=== PATIENT | female | born 1980 | race Two or more races ===

== ENCOUNTER 2021-09-25 16:09 | Emergency (ER) | payer MEDICAID ==
[~2021-09-25] VITALS: Ht 157.5 cm; Wt 80.7 kg
[2021-09-25] MEDS ORDERED: IV NORMAL SALINE 1000 ML BAG IV ONE (16:45)
[2021-09-25] MEDS ORDERED: METF-442 PO (17:00)
[2021-09-25 17:04] LABS: HEMATOCRIT 40.9 % (31.2-41.9); MEAN CORPUSCULAR HEMOGLOBIN 28.8 uug (24.7-32.8); MEAN CORPUSCULAR VOLUME 85.7 fL (75.5-95.3); PLATELET COUNT (AUTO) 272 K/uL (179-408)
[2021-09-25 17:20] LABS: *URINE HCG, QUAL NEG (NEGATIVE)
[2021-09-25 17:21] LABS: ALANINE AMINOTRANSFERASE 34 U/L (14-59); ALKALINE PHOSPHATASE 102 U/L (50-136); ASPARTATE AMINOTRANSFERASE 24 U/L (15-37); BILIRUBIN,DIRECT 0.2 mg/dL (0.0-0.2); BILIRUBIN,TOTAL 0.7 mg/dL (0.2-1.0); CARBON DIOXIDE 26 mmol/L (21-32); CHLORIDE 99 mmol/L (98-107); CREATININE 0.8 mg/dL (0.6-1.3); POTASSIUM 3.8 mmol/L (3.5-5.1); TOTAL PROTEIN, SERUM 7.4 g/dL (6.4-8.2); UREA NITROGEN, BLOOD 9 mg/dL (7-18)
[2021-09-25 17:21] LABS: *BILIRUBIN,URIN NEGATIVE (NEGATIVE); *BLOOD, URINE 1+ (NEGATIVE); *CLARITY,URINE SLIGHTLY CLOUDY (CLEAR); *COLOR,URINE YELLOW (YELLOW); *KETONES,URINE TRACE (NEGATIVE); *UROBILINOGEN,URINE 0.2 E.U./dl (NORMAL); LEUKOCYTE ESTERASE ,URINE TRACE (NEGATIVE); NITRITE, URINE POSITIVE (NEGATIVE); PH,URINE 6.5 (5.0-8.0)
[2021-09-25 17:24] LABS: ETHANOL < 3 MG/DL (0-0); GLUCOSE 434 mg/dL (74-106)
--- NOTE | 2021-09-25 17:24 | NUR ---
Critical lab value reported. Glucose of 434, notified
[2021-09-25 17:25] LABS: UGLUCOSE 3+ (NEGATIVE)
[2021-09-25 17:26] LABS: *AMPHETAMINE, URINE NEGATIVE (NEGATIVE); *CANNABINOID, URINE NEGATIVE (NEGATIVE); *COCCAINE, URINE NEGATIVE (NEGATIVE); *OPIATE, URINE NEGATIVE (NEGATIVE); *PHENCYCLIDINE SCREEN,URINE NEGATIVE (NEGATIVE)
[2021-09-25] MEDS ORDERED: CEFTRIAXONE 1 G in IV DEXTROSE 5% 50 ML IV ONE (18:00)
[2021-09-25] MEDS ORDERED: INSULIN REGULAR, HUMAN 300 UNIT/3 ML VIAL IV ONE (18:00)
[2021-09-25] MEDS ORDERED: CEFTRIAXONE /D5W 50ML IVPB **ER PYXIS IV ONE (18:08)
[2021-09-25] MEDS ORDERED: INSULIN REGULAR, HUMAN 300 UNIT/3 ML VIAL ONE (18:34)
[2021-09-25 19:05] LABS: BACTERIA,URINE MODERATE /HPF (NONE SEEN); SQUAMOUS EPITHELIAL CELL,UR FEW /HPF (NONE SEEN); WBC,URINE 50-80 /HPF (0-3)
--- NOTE | 2021-09-25 20:09 | NUR ---
BS 291, Dr Hoffmann made aware, no new orders.
[2021-09-25] MEDS ORDERED: ONDANSETRON 4 MG/2 ML VIAL IV ONE (20:30)
[2021-09-25] MEDS ORDERED: ACETAMINOPHEN ES 500 MG TABLET PO ONE (20:45)
[2021-09-25] MEDS ORDERED: ACETAMINOPHEN ES 500 MG TABLET ONE (20:46)
[2021-09-25] MEDS ORDERED: ONDANSETRON 4 MG/2 ML VIAL ONE (20:48)
--- NOTE | 2021-09-25 21:28 | NUR ---
Spoke with Teetee transfer medical case manager of [facility] regarding patient's COVID result, report given.
--- NOTE | 2021-09-25 23:00 | NUR ---
Teetee from [facility] called back regarding patient's hospital room number 303A, gave contact number [phone] and receiving Darwin FERNANDEZ.
--- NOTE | 2021-09-25 23:10 | NUR ---
Report given to REBECCA Granados.
--- NOTE | 2021-09-25 23:20 | NUR ---
Teetee called back regarding transportation ETA around midnight. Patient made aware regarding transportation of arrival and hospital room.
--- NOTE | 2021-09-25 23:50 | NUR ---
[facility] ambulance here for patient transportation.
--- NOTE | 2021-09-26 00:03 | NUR ---
Transported by [facility] via gurney accompanied by 2 machine tank operator to [facility], in stable condition, VSS. NAD. Belongings with patient. Updated REBECCA Granados regarding patient's ETA and latest VS.
== END 2021-09-26 00:29 | disposition short-term general hospital (02) ==
LOC: ER 17:28
DX: N12 Tubulo-interstitial nephritis, not specified as acute or chronic (principal); R11.10 Vomiting, unspecified; E11.65 Type 2 diabetes mellitus with hyperglycemia; Z79.84 Long term (current) use of oral hypoglycemic drugs; Z88.6 Allergy status to analgesic agent; Z88.5 Allergy status to narcotic agent; R94.31 Abnormal electrocardiogram [ECG] [EKG]; Z20.822 Contact with and (suspected) exposure to COVID-19
CPT/HCPCS: 80076; 80048; 81001; 82962; 84703; 85025; 87426; 87040 ×2; 87186; 87086; 87077; 84484; 36415; 93005; 99285; 96374; 96375; 83605; 80320; 80307; J0696; J2405; J1815; J7040; A4663; A9150; G0480